=== PATIENT | female | born 1985 | race Caucasian/White ===

== ENCOUNTER 2016-09-14 17:56 | Emergency (ER) | payer SELFPAY ==
--- NOTE | 2016-09-14 18:15 | ER Document Report ---
ED Medical Screen (RME) - General Chief Complaint: Eye Pain Stated Complaint: EYE PAIN Notes: contact wearer right eye pain and swelling, started this am denies trauma I have greeted and performed a rapid initial assessment of this patient. A comprehensive ED assessment and evaluation of the patient, analysis of test results and completion of the medical decision making process will be conducted by additional ED providers. TRAVEL OUTSIDE OF THE [place] IN LAST 30 DAYS: No - Related Data Allergies/Adverse Reactions: codeine [Codeine] Allergy (Severe, Verified 09/14/16 18:14) Past Medical History Musculoskeltal Medical History: Reports Hx Arthritis Past Surgical History: Reports: Hx Appendectomy, Hx Breast Surgery, Hx Section - 2 - Immunizations Hx Diphtheria, Pertussis, Tetanus Vaccination: Yes - 2010 Physical Exam - Vital signs Vitals: Temp Pulse Resp BP Pulse Ox 97.9 F 85 18 141/96 H 97 09/14/16 18:12 09/14/16 18:12 09/14/16 18:12 09/14/16 18:12 09/14/16 18:12 Course - Vital Signs Vital signs: Temp Pulse Resp BP Pulse Ox 97.9 F 85 18 141/96 H 97 09/14/16 18:12 09/14/16 18:12 09/14/16 18:12 09/14/16 18:12 09/14/16 18:12
[2016-09-14] MEDS ORDERED: TETRACAINE HCL 0.5% OPH SOLN 2 ML OD ONE (18:16)
--- NOTE | 2016-09-14 19:36 | ER Document Report ---
ED Eye Complaint - General Mode of Arrival: Ambulatory Information source: Patient TRAVEL OUTSIDE OF THE [place] IN LAST 30 DAYS: No - HPI Patient complains to provider of: Eye Pain Onset: This morning Eye location: Bilateral Occurred at: Home Contact lenses: Soft Associated symptoms: Pain, Redness <ASHLEY CLAIRE - Last Filed: 09/14/16 20:18> <LUCIA AVALOS - Last Filed: 09/14/16 21:36> - General Chief Complaint: Eye Pain Stated Complaint: EYE PAIN Notes: Patient is a 31-year-old female presenting to the emergency department concerned of bilateral eye pain onset this morning approximately an hour after she put her contacts in. Patient removed her right contact, but left her left contact so she could see. Patient states the right eye hurts worse than the left eye. Patient has been using a saline cleaning solution to soak her contacts at night and has not previously had any problems with her contacts. These contacts are approximately 2 weeks old. (ASHLEY CLAIRE) - Related Data Allergies/Adverse Reactions: codeine [Codeine] Allergy (Severe, Verified 09/14/16 18:14) Past Medical History - General Information source: Patient - Social History Smoking Status: Current Every Day Smoker Cigarette use (# per day): Yes - 1/2 ppd Chew tobacco use (# tins/day): No Frequency of alcohol use: None Drug Abuse: None Family History: Reviewed & Not Pertinent Patient has suicidal ideation: No Patient has homicidal ideation: No Renal/ Medical History: Denies: Hx Peritoneal Dialysis Musculoskeltal Medical History: Reports Hx Arthritis Past Surgical History: Reports: Hx Appendectomy, Hx Breast Surgery - reduction, Hx Section - 2 - Immunizations Hx Diphtheria, Pertussis, Tetanus Vaccination: Yes - 2010 <ASHLEY CLAIRE - Last Filed: 09/14/16 20:18> Review of Systems - Review of Systems Constitutional: No symptoms reported EENT: See HPI, Eye pain, Tearing Cardiovascular: No symptoms reported Respiratory: No symptoms reported Gastrointestinal: No symptoms reported Genitourinary: No symptoms reported Female Genitourinary: No symptoms reported Musculoskeletal: No symptoms reported Skin: No symptoms reported Hematologic/Lymphatic: No symptoms reported Neurological/Psychological: No symptoms reported -: Yes All other systems reviewed and negative <ASHLEY CLAIRE - Last Filed: 09/14/16 20:18> Physical Exam - General General appearance: Alert - HEENT Head: Normocephalic, Atraumatic Eyes: Other - Injected bilaterally. Eyelids edematous bilaterally. Cornea: Corneal abrasion - Right - 10:00 position in reference to pupil. Left- 4 :00 position. Visual acuity- Right eye: 20/200 Visual acuity- Left eye: 20/20 Visual acuity- Both eyes: 20/30 Corrective lenses worn: Yes - Respiratory Respiratory status: No respiratory distress Breath sounds: Normal - Cardiovascular Rhythm: Regular - Abdominal Inspection: Normal - Back Back: Normal - Extremities General upper extremity: Normal inspection General lower extremity: Normal inspection - Neurological Neuro grossly intact: Yes Cognition: Normal Orientation: AAOx4 Thomas Coma Scale Eye Opening: Spontaneous Vader Coma Scale Verbal: Oriented Thomas Coma Scale Motor: Obeys Commands Vader Coma Scale Total: 15 Speech: Normal - Psychological Associated symptoms: Normal affect, Normal mood - Skin Skin Temperature: Warm Skin Moisture: Dry Skin Color: Normal <ASHLEY CLAIRE - Last Filed: 09/14/16 20:18> Course <ASHLEY CLAIRE - Last Filed: 09/14/16 20:18> - Consults Dr. Keller Time consulted: 20:25 Consulted provider: follow-up in office - Start Besifloxacin eyedrops 3 times a day, erythromycin ophthalmic ointment daily at bedtime, and follow-up in the office at 9 AM tomorrow morning. <LUCIA AVALOS - Last Filed: 09/14/16 21:36> - Re-evaluation Re-evalutation: 09/14/16 21:34 PROCCEDURE: Each eye was anesthetized with tetracaine drops. Fluorescein was placed in each eye. Less than 1 mm round areas of stain uptake were seen in each eye. On the left it was noted near the limbus at about 4 o'clock position, on the right it was noted closer to the you pull at about the 10 o'clock position. The stain was irrigated out with normal saline. Homatropine drops were placed in each eye. Ketorolac drops, Besivance drops were placed in each eye. Patient was discharged home with with mycin ointment to use at bedtime, García's drops to use every 8 hours 3 times a day, and ketorolac drops to place one drop in each eye every 4 hours. She is also given a [place] dispense pack. She will follow-[facility] with [facility] tomorrow morning. (LUCIA AVALOS) - Vital Signs Vital signs: Temp Pulse Resp BP Pulse Ox 98.5 F 69 18 138/98 H 99 09/14/16 21:12 09/14/16 21:12 09/14/16 18:12 09/14/16 21:12 09/14/16 21:12 (ASHLEY CLAIRE) (LUCIA AVALOS) Discharge <ASHLEY CLAIRE - Last Filed: 09/14/16 20:18> <LUCIA AVALOS - Last Filed: 09/14/16 21:36> - Discharge Clinical Impression: Corneal abrasion of both eyes due to contact lens Condition: Stable Disposition: HOME, SELF-CARE Additional Instructions: Put the Besifloxacin eye drops---one drop into each eye evry 8 hours(3 times daily). Put the Erythromycin eye ointment---one ribbon of ointment inot each eye at bedtime each night. Put the Ketorolac eyedrops---one drop to each eye every four hours. Do not use contact lenses. Follow-up with Dr. Keller at [facility] tomorrow at 9:00 AM in the office. Referrals: EMELY KELLER MD [ACTIVE STAFF] - Follow up tomorrow ( follow up in the office Wednesday at 9:00 AM.) Scribe Attestation: 09/14/16 20:36 I personally performed the services described in the documentation, reviewed and edited the documentation which was dictated to the scribe in my presence, and it accurately records my words and actions. (LUCIA AVALOS) Scribe Documentation - Scribe Written by Scribe:: Ashley Claire 09/14/2016 193 acting as scribe for :: Perfecto <ASHLEY CLAIRE - Last Filed: 09/14/16 20:18>
[2016-09-14] MEDS ORDERED: BESIFLOXACIN HCL 0.6% OPH SUSP 5 ML BOTTLE OU ONE (20:20)
[2016-09-14] MEDS ORDERED: KETOROLAC TROMETHAMINE 0.45% 4 DROP/0.4 ML DROPERETTE OU ONE (20:35)
[2016-09-14] MEDS ORDERED: HYDROCODONE/ACETAMINOPHEN 5-325 MG 6 TAB/DSPK PO PRN (21:06)
[2016-09-14 21:18] VITALS: BP 138/98
[2016-09-14] MEDS ORDERED: ERYTHROMYCIN 0.5% OPH OINTMENT 3.5 GM (ER DISP) OU SCH (22:00)
== END 2016-09-14 21:18 | disposition home or self-care (01) ==
LOC: ER 17:56
DX: H18.823 Corneal disorder due to contact lens, bilateral (principal); H57.13 Ocular pain, bilateral; F17.210 Nicotine dependence, cigarettes, uncomplicated; Z88.6 Allergy status to analgesic agent
CPT/HCPCS: 99283

== ENCOUNTER 2017-01-13 16:00 | Emergency (ER) | payer MEDICAID ==
--- NOTE | 2017-01-13 16:43 | ER Document Report ---
ED Oral Problem - General Chief Complaint: Sore Throat Stated Complaint: SORE THROAT Time Seen by Provider: 01/13/17 16:28 Mode of Arrival: Ambulatory Information source: Patient Notes: 31-year-old female presents to ED for complaint of throat since Wednesday. She states she was at the park with her kids on Wednesday discriminate the kids and she thought that while it was yesterday it got worse and she developed a headache but denies any fever states that the sore throat is making her lose her voice. She has a runny nose and a little bit of postnasal drip. No acute distress when examined. TRAVEL OUTSIDE OF THE [place] IN LAST 30 DAYS: No - HPI Patient complains to provider of: Sore throat Onset: Other - wednesday Onset: Gradual Quality of pain: Sharp Severity: Moderate Pain Level: 4 Associated symptoms: Headache, White patches in mouth, Other - sore throat Relieved by: Nothing Similar symptoms previously: Yes Recently seen / treated by doctor/dentist: No - Related Data Allergies/Adverse Reactions: codeine [Codeine] Allergy (Severe, Verified 09/14/16 18:14) Past Medical History - General Information source: Patient - Social History Smoking Status: Current Every Day Smoker Cigarette use (# per day): Yes - 1/2 ppd Chew tobacco use (# tins/day): No Smoking Education Provided: Yes - less than 2 min Frequency of alcohol use: Rare Drug Abuse: None Occupation: none Lives with: Alone - with children Family History: CAD, DM, Hyperlipidemia, Hypertension, Malignancy Patient has suicidal ideation: No Patient has homicidal ideation: No - Past Medical History Cardiac Medical History: Reports: None Pulmonary Medical History: Reports: Hx Bronchitis EENT Medical History: Reports: None Neurological Medical History: Reports: Hx Migraine Endocrine Medical History: Reports: None Renal/ Medical History: Reports: None Malignancy Medical History: Reports: None GI Medical History: Reports: Hx Gastroesophageal Reflux Disease Musculoskeltal Medical History: Reports Hx Arthritis Skin Medical History: Reports None Psychiatric Medical History: Reports: None Traumatic Medical History: Reports: None Infectious Medical History: Reports: None Past Surgical History: Reports: Hx Appendectomy, Hx Breast Surgery - reduction, Hx Section - 2, Hx Thyroid Surgery - cyst removed - Immunizations Immunizations up to date: Yes Hx Diphtheria, Pertussis, Tetanus Vaccination: Yes - 2010 Review of Systems - Review of Systems Constitutional: No symptoms reported. denies: Fever EENT: Nose discharge, Throat pain Cardiovascular: No symptoms reported Respiratory: No symptoms reported Gastrointestinal: No symptoms reported Genitourinary: No symptoms reported Female Genitourinary: No symptoms reported Musculoskeletal: No symptoms reported Skin: No symptoms reported Hematologic/Lymphatic: No symptoms reported Neurological/Psychological: Headaches -: Yes All other systems reviewed and negative Physical Exam - Vital signs Vitals: Temp Pulse Resp BP Pulse Ox 98.7 F 116 H 18 122/79 97 01/13/17 16:13 01/13/17 16:13 01/13/17 16:13 01/13/17 16:13 01/13/17 16:13 Interpretation: Normal - General General appearance: Appears well, Alert - HEENT Head: Normocephalic, Atraumatic Eyes: Normal Pupils: PERRL Ears: Normal External canal: Normal Tympanic membrane: Normal Sinus: Normal Nasal: Purulent discharge Mouth/Lips: Normal Mucous membranes: Normal Pharynx: Post nasal drainage Neck: Normal - Respiratory Respiratory status: No respiratory distress Chest status: Nontender Breath sounds: Normal Chest palpation: Normal - Cardiovascular Rhythm: Regular Heart sounds: Normal auscultation Murmur: No - Abdominal Inspection: Normal Distension: No distension Bowel sounds: Normal Tenderness: Nontender Organomegaly: No organomegaly - Back Back: Normal, Nontender - Extremities General upper extremity: Normal inspection, Nontender, Normal color, Normal ROM , Normal temperature General lower extremity: Normal inspection, Nontender, Normal color, Normal ROM , Normal temperature, Normal weight bearing. No: Demetrice's sign - Neurological Neuro grossly intact: Yes Cognition: Normal Orientation: AAOx4 Topmost Coma Scale Eye Opening: Spontaneous Topmost Coma Scale Verbal: Oriented Thomas Coma Scale Motor: Obeys Commands Thomas Coma Scale Total: 15 Speech: Normal Motor strength normal: LUE, RUE, LLE, RLE Sensory: Normal - Psychological Associated symptoms: Normal affect, Normal mood - Skin Skin Temperature: Warm Skin Moisture: Dry Skin Color: Normal Course - Vital Signs Vital signs: Temp Pulse Resp BP Pulse Ox 98.7 F 121 H 18 112/78 98 01/13/17 16:13 01/13/17 16:42 01/13/17 16:42 01/13/17 16:42 01/13/17 16:42 Discharge - Discharge Clinical Impression: Strep pharyngitis Condition: Stable Disposition: HOME, SELF-CARE Instructions: Use of [id number] Ibuprofen ([facility]), Family Physicians / Practices Additional Instructions: STREP THROAT: Your sore throat is due to the streptococcus germ (strep throat). Strep throat usually makes you feel quite ill with fever and aches, headache, swollen sore throat, and tender bumps under the angles of the jaw. Strep throat requires antibiotic treatment. Although the sore throat may go away by itself, complications such as rheumatic fever, kidney disease, or throat abscess can occur. We usually prescribe antibiotics by mouth. Be sure to take the medicine until it's gone. If you stop early, the strep may come back. If you are vomiting, are severely ill, or can't remember to take pills, we can give you an antibiotic shot. Take acetaminophen or ibuprofen for pain and fever. Sip frequent clear liquids, or use popsicles or ice chips. Anesthetic sprays or lozenges may help. Make sure the air in the room is not too dry. Avoid using decongestants or antihistamines. Call the doctor if there is no improvement in three days, or if you have difficulty breathing, increasing throat pain, high fever, rash, or frequent vomiting. PENICILLIN V K: You have been given a prescription for Penicillin VK. Your physician has determined that this is the best antibiotic for your condition. Pen VK can be taken with meals, however more of the antibiotic gets into the bloodstream if it's taken on an empty stomach. Penicillin usually has no side effects. However, allergy to penicillins is common. If you have had an allergic reaction to any drug of the penicillin family, you should never take any other penicillin. Notify your doctor at once if you develop hives, itching, swelling, faintness, or shortness of breath. STEROID MEDICATION: You have been given a medicine of the cortisone/steroid class. This medication is used to control inflammation or allergy. It is usually only given for a short period of time, until the acute process subsides. There are usually no side effects from short-term use of cortisone-like medications. Some persons feel an increased sense of well-being and are not sleepy at bedtime. Long-term use of cortisone medications is best avoided, unless required for a severe condition. If your condition does not remit, or relapses after the course of corticosteroid medication, you should consult your physician. FOLLOW-UP CARE: If you have been referred to a physician for follow-up care, call the physician s office for an appointment as you were instructed or within the next two days. If you experience worsening or a significant change in your symptoms, notify the physician immediately or return to the Emergency Department at any time for re-evaluation. Prescriptions: Penicillin V Potassium [Penicillin Vk 500 mg Tablet] 500 mg PO BID #20 tablet
[2017-01-13] MEDS ORDERED: PREDNISONE 20 MG TABLET PO ONE (17:14)
[2017-01-13] MEDS ORDERED: PENICILLIN V POTASSIUM 500 MG TABLET PO ONE (17:14)
[2017-01-13] MEDS ORDERED: IBUPROFEN 600 MG TABLET PO ONE (17:15)
[2017-01-13 17:40] VITALS: BP 112/78
== END 2017-01-13 17:38 | disposition home or self-care (01) ==
LOC: ER 16:00
DX: J02.0 Streptococcal pharyngitis (principal); R51 Headache; R09.89 Other specified symptoms and signs involving the circulatory and respiratory systems; R09.82 Postnasal drip; F17.210 Nicotine dependence, cigarettes, uncomplicated; Z71.6 Tobacco abuse counseling; Z88.5 Allergy status to narcotic agent
CPT/HCPCS: 99283; 87880; J3490 ×2; J7512

== ENCOUNTER 2017-05-28 08:05 | Emergency (ER) | payer SELFPAY ==
--- NOTE | 2017-05-28 09:21 | ER Document Report ---
HPI - HPI Pain Level: 4 Notes: +nasal samson/discharge, post nasal drip, occ dry nonproductive cough, occ sore throat eating/drinking no problems normal urinations/BM's symptoms started 4-5 days ago OTC meds not helping + smoker, no drugs No recent travel Denies any headache, fever, neck pain, chest pain, palpitations, syncope, shortness of breath, wheeze, dyspnea, abdominal pain, nausea/vomiting/diarrhea, urinary retention, dysuria, hematuria, or rash. - ROS Notes: REVIEW OF SYSTEMS: CONSTITUTIONAL : Denies fever, chills, or sweats. Denies recent illness. EENT: see hpi CARDIOVASCULAR: Denies chest pain. Denies palpitations or racing or irregular heart beat. Denies ankle edema. RESPIRATORY: see hpi GASTROINTESTINAL: Denies abdominal pain or distention. Denies nausea, vomiting , or diarrhea. Denies blood in vomitus, stools, or per rectum. Denies black, tarry stools. Denies constipation. GENITOURINARY: Denies difficulty urinating, painful urination, burning, frequency, blood in urine, or discharge. MUSCULOSKELETAL: Denies back or neck pain or stiffness. Denies joint pain or swelling. SKIN: Denies rash, lesions or sores. NEUROLOGICAL: Denies confusion or altered mental status. Denies passing out or loss of consciousness. Denies dizziness or lightheadedness. Denies headache. Denies weakness or paralysis or loss of use of either side. Denies problems with gait or speech. Denies sensory loss, numbness, or tingling. ALL OTHER SYSTEMS REVIEWED AND NEGATIVE. Dictation was performed using [employer] voice recognition software - CARDIOVASCULAR Cardiovascular: DENIES: Chest pain - REPRODUCTIVE LMP: 05/21/17 Reproductive: DENIES: : - DERM Skin Color: Normal Past Medical History - Social History Smoking Status: Current Every Day Smoker Chew tobacco use (# tins/day): No Frequency of alcohol use: Occasional Drug Abuse: None Family History: CAD, DM, Hyperlipidemia, Hypertension, Malignancy Patient has suicidal ideation: No Patient has homicidal ideation: No Pulmonary Medical History: Reports: Hx Bronchitis Neurological Medical History: Reports: Hx Migraine Renal/ Medical History: Denies: Hx Peritoneal Dialysis GI Medical History: Reports: Hx Gastroesophageal Reflux Disease Musculoskeltal Medical History: Reports Hx Arthritis Past Surgical History: Reports: Hx Appendectomy, Hx Breast Surgery - reduction, Hx Section - 2, Hx Thyroid Surgery - cyst removed - Immunizations Immunizations up to date: Yes Hx Diphtheria, Pertussis, Tetanus Vaccination: Yes - 2010 Vertical Provider Document - CONSTITUTIONAL Agree With Documented VS: Yes Notes: PHYSICAL EXAMINATION: GENERAL: Well-appearing, well-nourished and in no acute distress. A&Ox4 HEAD: Atraumatic, normocephalic. EYES: Pupils equal round and reactive to light, extraocular movements intact, sclera anicteric, conjunctiva are normal. ENT: EAC clear b/l. TM's intact b/l without erythema, fluid, or perforation. Nares patent and with clear discharge. oropharynx clear without exudates. No tonsilar hypertrophy or erythema. Moist mucous membranes. No sinus tenderness. NECK: Normal range of motion, supple without lymphadenopathy. No rigidity/ meningismus LUNGS: Breath sounds clear to auscultation bilaterally and equal. No wheezes rales or rhonchi. HEART: Regular rate and rhythm without murmurs, rubs, gallops. Extremities: No cyanosis, clubbing, or edema b/l. Peripheral pulses 2+. Capillary refill less than 3 seconds. NEUROLOGICAL: Normal speech, normal gait. Normal sensory, motor exams PSYCH: Normal mood, normal affect. SKIN: Warm, Dry, normal turgor, no rashes or lesions noted. - INFECTION CONTROL TRAVEL OUTSIDE OF THE [place] IN LAST 30 DAYS: No Course - Re-evaluation Re-evalutation: 05/28/17 09:29 Patient is an afebrile, well-hydrated, 32-year-old female who presents the ED with acute URI, suspect viral at this time. Vitals are stable. PE is otherwise unremarkable. Low suspicion for any emergent systemic condition at this time. Patient to monitor symptoms closely and seek medical attention with acute changes. Recheck with your PCM in 2-3 days. Return to the ED with any worsening/concerning symptoms otherwise as reviewed in discharge. Conservative measures for symptoms as reviewed in discharge. Patient is in agreement. Discharge - Discharge Clinical Impression: URI (upper respiratory infection) Qualifiers: URI type: unspecified URI Qualified Code(s): J06.9 - Acute upper respiratory infection, unspecified Condition: Stable Disposition: HOME, SELF-CARE Instructions: Upper Respiratory Illness ([facility]), Viral Syndrome ([facility]) Additional Instructions: Maintain adequate fluid intake Take meds as directed tylenol/ibuprofen as needed over the counter cold medication as needed for symptoms Humidified air may help F/u: with your PCM in 2-3 days for a recheck Return to the ED with any fever, worsening pain, chest pain, palpitations, syncope, worsening GARCIA, neck pain/stiffness, shortness of breath, wheezing, drooling, trouble swallowing/breathing, abdominal pain, n/v/d, rash, or worsening/concerning symptoms otherwise. Referrals: TANK HEATH DO [Primary Care Provider] - Follow up in 3-5 days
[2017-05-28 09:29] VITALS: BP 132/76
== END 2017-05-28 09:27 | disposition home or self-care (01) ==
LOC: ER 08:05
DX: J06.9 Acute upper respiratory infection, unspecified (principal); F17.200 Nicotine dependence, unspecified, uncomplicated
CPT/HCPCS: 99283

== ENCOUNTER 2017-07-03 14:52 | Emergency (ER) | payer MEDICAID ==
[2017-07-03 15:06] VITALS: BP 141/93
[2017-07-03] MEDS ORDERED: PENICILLIN V POTASSIUM 500 MG TABLET PO ONE (15:19)
[2017-07-03] MEDS ORDERED: IBUPROFEN 800 MG TABLET PO ONE (15:19)
--- NOTE | 2017-07-03 15:22 | ER Document Report ---
HPI - HPI Patient complains to provider of: Dental pain Onset: Other - Several months, worse since yesterday Onset/Duration: Worse Quality of pain: Achy Pain Level: 5 Context: Patient presents complaining of dental pain to left lower jaw for several months that worsened yesterday. Patient is an appointment next week with a dentist. Patient denies any fever or facial swelling. Associated Symptoms: Other - Dental pain. denies: Fever Exacerbated by: Denies Relieved by: Denies Similar symptoms previously: Yes Recently seen / treated by doctor: No - ROS ROS below otherwise negative: Yes Systems Reviewed and Negative: Yes All other systems reviewed and negative - CONSTITUTIONAL Constitutional: DENIES: Fever - EENT Notes: Dental pain - GASTROINTESTINAL Gastrointestinal: DENIES: Nausea, Patient vomiting - REPRODUCTIVE Reproductive: DENIES: : - MUSCULOSKELETAL Musculoskeletal: DENIES: Back Pain, Neck Pain - DERM Skin Color: Normal Skin Problems: None Past Medical History - General Information source: Patient - Social History Smoking Status: Current Every Day Smoker Smoking Education Provided: Yes - For at least 3 minutes Drug Abuse: None Family History: CAD, DM, Hyperlipidemia, Hypertension, Malignancy Pulmonary Medical History: Reports: Hx Bronchitis Neurological Medical History: Reports: Hx Migraine Renal/ Medical History: Denies: Hx Peritoneal Dialysis GI Medical History: Reports: Hx Gastroesophageal Reflux Disease Musculoskeltal Medical History: Reports Hx Arthritis Past Surgical History: Reports: Hx Appendectomy, Hx Breast Surgery - reduction, Hx Section - 2, Hx Thyroid Surgery - cyst removed - Immunizations Immunizations up to date: Yes Hx Diphtheria, Pertussis, Tetanus Vaccination: Yes - 2010 Vertical Provider Document - CONSTITUTIONAL Agree With Documented VS: Yes Exam Limitations: No Limitations General Appearance: WD/WN, No Apparent Distress - INFECTION CONTROL TRAVEL OUTSIDE OF THE [place] IN LAST 30 DAYS: No - HEENT HEENT: Atraumatic, Normocephalic. negative: Pharyngeal Exudate, Pharyngeal Tenderness, Pharyngeal Erythema, Tympanic Membrane Red, Tympanic Membrane Bulging Mouth Diagram: 1 - Dental decay, tenderness, no gingival abscess, no trismus, no sublingual or submental swelling - NECK Neck: Normal Inspection, Supple. negative: Lymphadenopathy-Left, Lymphadenopathy-Right - RESPIRATORY Respiratory: Breath Sounds Normal, No Respiratory Distress O2 Sat by Pulse Oximetry: 100 - CARDIOVASCULAR Cardiovascular: Regular Rate, Regular Rhythm, No Murmur - MUSCULOSKELETAL/EXTREMETIES Musculoskeletal/Extremeties: MAEW - NEURO Level of Consciousness: Awake, Alert, Appropriate Motor/Sensory: No Motor Deficit - DERM Integumentary: Warm, Dry, No Rash Course - Re-evaluation Re-evalutation: 07/03/17 15:21 The patient has been informed that they may have pre-hypertension or hypertension based on a blood pressure reading in the emergency department. I recommend that patient call the primary care provider listed on their discharge instructions or a physician of their choice by this week to arrange follow-up for further evaluation of possible pre-hypertension or hypertension. Controlled substance database reviewed - Vital Signs Vital signs: Temp Pulse Resp BP Pulse Ox 98.4 F 84 16 141/93 H 100 07/03/17 15:05 07/03/17 15:05 07/03/17 15:05 07/03/17 15:05 07/03/17 15:05 Discharge - Discharge Clinical Impression: Elevated blood pressure reading, Toothache Condition: Stable Disposition: HOME, SELF-CARE Instructions: Penicillin V K ([facility]), Toothache ([facility]), Ultram ([facility]) Additional Instructions: Return immediately for any new or worsening symptoms Followup with your dental care provider, call tomorrow to make a followup appointment Prescriptions: Naproxen [Naprosyn 250 Nmg Tablet] 1 tab PO BID #14 tablet Penicillin V Potassium [Penicillin Vk 500 mg Tablet] 500 mg PO BID #20 tablet Tramadol HCl [Ultram 50 mg Tablet] 50 mg PO ASDIR PRN #15 tablet PRN Reason: Forms: Elevated Blood Pressure Referrals: [facility] [Provider Group] - Follow up as needed
== END 2017-07-03 15:30 | disposition home or self-care (01) ==
LOC: ER 14:52
DX: R03.0 Elevated blood-pressure reading, without diagnosis of hypertension (principal); K08.9 Disorder of teeth and supporting structures, unspecified; F17.200 Nicotine dependence, unspecified, uncomplicated
CPT/HCPCS: 99282; J3490 ×2

== ENCOUNTER 2017-07-27 20:19 | Emergency (ER) | payer MEDICAID ==
[2017-07-27] MEDS ORDERED: TETRACAINE HCL 0.5% OPH SOLN 2 ML OS ONE (23:13)
[2017-07-27] MEDS ORDERED: TOBRAMYCIN SULFATE/DEXAMETH OPH SUSP 2.5 ML OS ONE (23:51)
[2017-07-28] MEDS ORDERED: TOBRAMYCIN SULFATE/DEXAMETH OPH SUSP 2.5 ML ONE (00:33)
--- NOTE | 2017-07-28 00:52 | ER Document Report ---
ED Eye Complaint - General Chief Complaint: Eye Pain Stated Complaint: LEFT EYE PAIN Time Seen by Provider: 07/27/17 20:42 Mode of Arrival: Ambulatory Information source: Patient Notes: Patient states that last week she is wearing her contacts in but she got some dirt and I am so she took him out and threw them away. She went a week without using them she put in some new contact lenses today and after half a day where now she started getting irritation in the eye and difficult and discomfort and pain. Her eyes started turning red started tearing. Patient took out her contacts again but has not gotten any better. Mostly his left eye that is affected right eye is not symptomatic. TRAVEL OUTSIDE OF THE [place] IN LAST 30 DAYS: No - HPI Patient complains to provider of: Left eye redness Onset: This afternoon Eye location: Left Injury: No Occurred at: Other - Unknown Quality of pain: Burning, Other - Itchy Severity: Moderate Pain Level: 3 Contact lenses: Soft Associated symptoms: Burning, Itching, Photophobia, Eyelid swelling, Foreign body sensation - Related Data Allergies/Adverse Reactions: codeine [Codeine] Allergy (Severe, Verified 07/03/17 15:19) Past Medical History - General Information source: Patient - Social History Smoking Status: Current Every Day Smoker Cigarette use (# per day): Yes - Half-pack Chew tobacco use (# tins/day): No Smoking Education Provided: Yes Frequency of alcohol use: None Drug Abuse: None Lives with: Family Family History: Reviewed & Not Pertinent, CAD, DM, Hyperlipidemia, Hypertension , Malignancy Patient has suicidal ideation: No Patient has homicidal ideation: No Pulmonary Medical History: Reports: Hx Bronchitis Neurological Medical History: Reports: Hx Migraine Renal/ Medical History: Denies: Hx Peritoneal Dialysis GI Medical History: Reports: Hx Gastroesophageal Reflux Disease Musculoskeltal Medical History: Reports Hx Arthritis Past Surgical History: Reports: Hx Appendectomy, Hx Breast Surgery - reduction, Hx Section - 2, Hx Thyroid Surgery - cyst removed - Immunizations Immunizations up to date: Yes Hx Diphtheria, Pertussis, Tetanus Vaccination: Yes - 2010 Review of Systems - Review of Systems Constitutional: No symptoms reported, Fever EENT: Eye pain, Blurred vision, Tearing Cardiovascular: No symptoms reported Respiratory: No symptoms reported Gastrointestinal: No symptoms reported Genitourinary: No symptoms reported Female Genitourinary: No symptoms reported Musculoskeletal: No symptoms reported Skin: No symptoms reported Hematologic/Lymphatic: No symptoms reported Neurological/Psychological: No symptoms reported -: Yes All other systems reviewed and negative Physical Exam - Vital signs Vitals: Temp Pulse Resp BP Pulse Ox 99.0 F 92 18 135/90 H 97 07/27/17 20:41 07/27/17 20:41 07/27/17 20:41 07/27/17 20:41 07/27/17 20:41 Interpretation: Hypertensive - HEENT Head: Normocephalic, Atraumatic Eyes: Pale conjunctiva, Tears Conjunctiva: Injected Cornea: Normal, Other - Patient had no pain in the back of her eyes it was more irritation. Do not believe that we had worry about any type of an acute glaucoma presentation. Also on forcing staining patient had clear corneas.. No : Corneal abrasion, Corneal ulcer, Dendrite, Embedded foreign body, Flourescein stain uptake, Opacified, Superficial foreign body Extraocular movements intact: Yes - Normal Eyelashes: Matted Pupils: PERRL Visual acuity- Right eye: Unable to Anterior chamber: Other - Unable to perform secondary to patient tearing so badly Tympanic membrane: Bulging Sinus: Normal Nasal: Normal Mouth/Lips: Normal Mucous membranes: Normal, Moist Pharynx: Normal. No: Blood in hypopharynx, Erythema, Exudate, Peritonsillar abscess, Post nasal drainage, Retropharyngeal abscess, Tonsillar hypertrophy, Uvular edema, Potential airway comprom., Other Neck: Normal. No: Anterior cervical chain, Posterior cervical chain, Brudzinski , Carotid bruit, Kernig's, Lymphadenopathy, Meningismus, Neck mass, Shotty nodes , Subcutaneous emphysema, Supple, Thyroid nodule, Thyromegally, Other - Respiratory Respiratory status: No respiratory distress Chest status: Nontender Breath sounds: Normal. No: Decreased air movement, Nonproductive cough, Productive cough, Rales, Rhonchi, Stridor, Wheezing, Other - Cardiovascular Rhythm: Regular Heart sounds: Normal auscultation Murmur: No - Neurological Neuro grossly intact: Yes Cognition: Normal Orientation: AAOx4 [place] Coma Scale Eye Opening: Spontaneous [place] Coma Scale Verbal: Oriented Thomas Coma Scale Motor: Obeys Commands [place] Coma Scale Total: 15 Speech: Normal Course - Vital Signs Vital signs: Temp Pulse Resp BP Pulse Ox 99.0 F 92 18 135/90 H 97 07/27/17 20:41 07/27/17 20:41 07/27/17 20:41 07/27/17 20:41 07/27/17 20:41 - Transfer of Care Notes: 07/28/17 00:58 Have had a long discussion with patient and placed her up on TobraDex eyedrops 4 times a day for 7 days. I have informed her that if pain is not better in 24- 48 hours she needs to schedule appointment with her adult education teacher or animal nutrition teacher. If she does not have one I have given her the name of one locally. Discharge - Discharge Clinical Impression: Bacterial conjunctivitis Blepharitis Qualifiers: Blepharitis type: unspecified type Laterality: left Eyelid: upper Qualified Code(s): H01.004 - Unspecified blepharitis left upper eyelid Condition: Good Instructions: Antibiotic Therapy ([facility]), Conjunctivitis ([facility]), Eyedrop Use ([facility]) Additional Instructions: Home and rest. Use the eyedrops 1 drop in left eye every 6 hours for 7 days. Do not exceed 7 days with the steroid. Use warm moist compresses to clear the eyes out. I would suggest staying in a darkened area for 24 hours as much as possible. If pain and discomfort ongoing after 24 hours I would highly recommend you follow up with your animal nutrition teacher or adult education teacher for a recheck. He may also return here for recheck. Forms: Elevated Blood Pressure, Smoking Cessation Education, Return to Work Referrals: EMELY VELAZCO MD [ACTIVE STAFF] - Follow up as needed
[2017-07-28 01:02] VITALS: BP 134/82
== END 2017-07-28 01:00 | disposition home or self-care (01) ==
LOC: ER 20:19
DX: H10.89 Other conjunctivitis (principal); H01.004 Unspecified blepharitis left upper eyelid; F17.210 Nicotine dependence, cigarettes, uncomplicated; Z88.6 Allergy status to analgesic agent
CPT/HCPCS: 99282; J3490